=== PATIENT | male | born 1990 | race Caucasian/White ===

== ENCOUNTER 2016-05-28 15:40 | Emergency (ER) | payer MEDICAID, OTHER ==
[2016-05-28 16:01] VITALS: BP 125/66; PULSE 75; RESP 18; TEMP 98; O2SAT 97
--- NOTE | 2016-05-28 20:10 | UCPHY ---
H & P Time Seen by Provider: 05/28/16 17:28 Patient Type: New HPI/ROS: HPI Constipation. 25-year-old male by private vehicle. Reports that feels he has a stool impaction in his rectum. He has not been able to have a normal bowel movement in 3-4 days. He reports he has had some diarrheal stool which she feels has been passed around this impaction. He denies any significant abdominal pain. No fever. He has not vomited. No rectal bleeding. ROS: Constitutional: No fever, no chills. No weakness. Respiratory: No cough. No shortness of breath. Cardiac: No chest pain, no palpitations. Gastrointestinal: No abdominal pain, no vomiting, no diarrhea. As above. Genitourinary: No hematuria. No dysuria or increased frequency with urination. Musculoskeletal: No back pain. No neck pain. No myalgias or arthralgias. Skin: Chronic eczema. Neurological: No headache. No focal weakness or altered sensation. Past medical history: Eczema. Asthma. Social history: Nonsmoker. Here by himself. Physical Exam: General Appearance: Alert, no distress. This patient is responding to questions appropriately and in full sentences. This patient appears well- hydrated and well-nourished. Gastrointestinal: Abdomen is soft and nontender, no masses, bowel sounds normal. No focal tenderness at McBurney's point. No Cleary sign. Neurological: Motor sensory function is grossly intact. Cranial nerves are normal. Gait is normal. Skin: Warm and dry, no rashes. Extremities are symmetrical. All joints range without pain or impingement. Psychiatric: No agitation. No depression. Database: EKG: Imaging: Procedures: Emergency department course: Vital signs reviewed. He was given soapsuds enema with great success. He had a large and satisfying bowel movement. He feels much better and feels comfortable going home. I feel he is safe for discharge. Follow-up and return to emergency department precautions reviewed. Constipation management discussed. All of his questions were answered. He was discharged in good condition. Differential Diagnosis: The differential diagnosis on this patient includes but is not limited to constipation. Obstipation, bowel obstruction unlikely. This represents a partial list of diagnoses considered. These considerations are based on history , physical exam, past history, reassessment and diagnostic testing. Smoking Status: Current every day smoker Constitutional: Initial Vital Signs Temperature (C) 36.6 C 05/28/16 15:57 Heart Rate 75 05/28/16 15:57 Respiratory Rate 18 05/28/16 15:57 Blood Pressure 125/66 H 05/28/16 15:57 O2 Sat (%) 97 05/28/16 15:57 O2 Delivery Mode Room Air Allergies/Adverse Reactions: No Known Allergies Allergy (Unverified 05/09/14 14:29) Home Medications: Medication Instructions Recorded Albuterol [Proventil Inhaler (RX)] 1 - 2 puffs IH Q4 09/05/11 Dulera 100 Mcg/5 Mcg Inhaler 04/24/14 Topiramate 05/28/16 hydrALAZINE 05/28/16 Departure - Departure Disposition: Home, Routine, Self-Care Clinical Impression: Constipation Condition: Good Instructions: High Fiber Diet (ED), Constipation (ED) Additional Instructions: Read and follow provided instructions. Follow-up with your primary care physician in 1-2 days for re-evaluation. Return to the emergency department for worsening symptoms or other serious concerns. Referrals: NONE *PRIMARY CARE P,. [Primary Care Provider] - As per Instructions - PQRS PQRS Measurement: Not applicable.
== END 2016-05-28 20:15 | disposition home or self-care (01) ==
LOC: CED 15:40
DX: K59.00 Constipation, unspecified (principal)
CPT/HCPCS: G0463-PO

== ENCOUNTER 2016-06-06 13:15 | Emergency (ER) | payer MEDICAID ==
[2016-06-06 13:22] VITALS: RESP 16; TEMP 98.4
[2016-06-06] MEDS ORDERED: SULFAMETHOX/TMP 800/160 MG 1 TAB PO ONE (13:33)
[2016-06-06] MEDS ORDERED: HYDROmorphONE/DILAUDID 1 MG/ML SYR IVP ONE (13:33)
[2016-06-06] MEDS ORDERED: HYDROmorphONE/DILAUDID 1 MG/ML SYR ONE (13:34)
[2016-06-06] MEDS ORDERED: ONDANSETRON 4 MG/2 ML VIAL ONE (13:34)
--- NOTE | 2016-06-06 13:36 | EDPHY ---
H & P Stated Complaint: Enedelia-anal abcess. Time Seen by Provider: 06/06/16 13:27 HPI/ROS: CHIEF COMPLAINT: Perirectal abscess HISTORY OF PRESENT ILLNESS: Patient is a 25-year-old man who comes to the emergency department complaining of a recurrent perirectal abscess. He states that he had 1 about a year ago that was drained by Dr. Coles. He was placed on antibiotics and his symptoms resolved. He states that he has noticed again for the last 3 days. He has not had a fever. He does have some pain with defecation. No purulent drainage from his rectum. He also has a history of eczema. REVIEW OF SYSTEMS: Constitutional: denies: chills, fever, recent illness, recent injury EENTM: denies: blurred vision, double vision, nose congestion Respiratory: denies: cough, shortness of breath Cardiac: denies: chest pain, irregular heart rate, lightheadedness, palpitations Gastrointestinal/Abdominal: See HPI Genitourinary: denies: dysuria, frequency, hematuria, pain Musculoskeletal: denies: joint pain, muscle pain Skin: see HPI Neurological: denies: headache, numbness, paresthesia, tingling, dizziness, weakness Hematologic/Lymphatic: denies: blood clots, easy bleeding, easy bruising Immunologic/allergic: denies: HIV/AIDS, transplant EXAM: GENERAL: Well-appearing, well-nourished and in no acute distress. HEAD: Atraumatic, normocephalic. EYES: Pupils equal round and reactive to light, extraocular movements intact, sclera anicteric, conjunctiva are normal. ENT: TMs normal, nares patent, oropharynx clear without exudates. Moist mucous membranes. NECK: Normal range of motion, supple without lymphadenopathy or JVD. LUNGS: Breath sounds clear to auscultation bilaterally and equal. No wheezes rales or rhonchi. HEART: Regular rate and rhythm without murmurs, rubs or gallops. ABDOMEN: Soft, nontender, normoactive bowel sounds. No guarding, no rebound. No masses appreciated. : Patient has a fluctuant abscess at 7 o'clock perirectal. Rectal exam performed. No encroachment into the rectal vault. No drainage. BACK: No CVA tenderness, no spinal tenderness, step-offs or deformities EXTREMITIES: Normal range of motion, no pitting or edema. No clubbing or cyanosis. NEUROLOGICAL: Cranial nerves II through XII grossly intact. Normal speech, normal gait. 5/5 strength, normal movement in all extremities, normal sensation PSYCH: Normal mood, normal affect. SKIN: Warm, dry, normal turgor, no visible rashes or lesions. Source: Patient Exam Limitations: No limitations - Personal History Current Tetanus/Diphtheria Vaccine: Yes Current Tetanus Diphtheria and Acellular Pertussis (TDAP): Yes Tetanus Vaccine Date: 2015 - Medical/Surgical History Hx Asthma: Yes Hx Chronic Respiratory Disease: No Hx Diabetes: No Hx Cardiac Disease: No Hx Renal Disease: No Hx Cirrhosis: No Hx Alcoholism: No Hx HIV/AIDS: No Hx Splenectomy or Spleen Trauma: No Other PMH: asthma, previous perianal abscess, MRSA groin, eczema. - Family History Significant Family History: No pertinent family hx - Social History Smoking Status: Heavy smoker Alcohol Use: Sober Drug Use: None Constitutional: Initial Vital Signs Temperature (C) 36.9 C 06/06/16 13:18 Heart Rate 116 H 06/06/16 13:18 Respiratory Rate 16 06/06/16 13:18 Blood Pressure 116/97 H 06/06/16 13:18 O2 Sat (%) 97 06/06/16 13:18 O2 Delivery Mode Room Air Allergies/Adverse Reactions: No Known Allergies Allergy (Verified 06/06/16 13:22) Home Medications: Medication Instructions Recorded Albuterol [Proventil Inhaler (RX)] 1 - 2 puffs IH Q4 09/05/11 Dulera 100 Mcg/5 Mcg Inhaler 04/24/14 Topiramate 05/28/16 Hydrocodone/APAP 5/325 [Gonzales 1 - 2 tab PO Q4H PRN #20 tab 06/06/16 5/325 (RX)] Hydroxyzine HCl 06/06/16 Sulfamethox/Tmp 800/160 mg 1 tab PO BID #14 tab 06/06/16 [Bactrim Ds] Medical Decision Making Procedures: Procedure: Abscess drainage. The patient's abscess was located on the right perirectal. I obtained verbal consent from the patient to drain the abscess who was informed about the possibility of bleeding and pain. The abscess was incised with 11 blade scalpel and 10 cc of purulent drainage was expressed. I irrigated the wound and placed some packing. The patient tolerated the procedure well. The procedure was performed by myself. ED Course/Re-evaluation: Patient was procedure well. The he started himself on Bactrim earlier today. I will refill his prescription. He is happy with this and declines further workup or testing. I will also give him prescription for pain medication. Differential Diagnosis: Partial list of the Differential diagnosis considered include but were not limited to; abscess, fistula and although unlikely based on the history and physical exam, I also considered cyst, hemorrhoids. I discussed these differential diagnoses and the plan with the patient as well as the usual and expected course. The patient understands that the diagnosis is provisional and that in medicine we are not always correct and that further workup is often warranted. Usual and customary warnings were given. All of the patient's questions were answered. The patient was instructed to return to the emergency department should the symptoms at all worsen or return, otherwise to followup with the physician as we discussed. - Data Points Medications Given: Discontinued Medications Hydromorphone HCl (Dilaudid) 1 mg IVP EDNOW ONE Stop: 06/06/16 13:34 Last Admin: 06/06/16 13:53 Dose: 1 mg Ondansetron HCl (Zofran) 4 mg IVP EDNOW ONE Stop: 06/06/16 13:54 Last Admin: 06/06/16 13:53 Dose: 4 mg Trimethoprim/Sulfamethoxazole (Bactrim Ds) 1 ea PO EDNOW ONE PRN Reason: Protocol Stop: 06/06/16 13:34 Last Admin: 06/06/16 14:10 Dose: Not Given Departure - Departure Disposition: Home, Routine, Self-Care Clinical Impression: Perirectal abscess Condition: Fair Instructions: Anorectal Abscess and Anal Fistula (ED) Referrals: NONE *PRIMARY CARE P,. [Primary Care Provider] - As per Instructions Juan Carlos Holley MD [Medical Doctor] - As per Instructions Prescriptions: Hydrocodone/APAP 5/325 [Gonzales 5/325 (RX)] 1 - 2 tab PO Q4H PRN #20 tab PRN Reason: Pain, Moderate Sulfamethox/Tmp 800/160 mg [Bactrim Ds] 1 tab PO BID #14 tab
[2016-06-06] MEDS ORDERED: ONDANSETRON 4 MG/2 ML VIAL IVP ONE (13:53)
[2016-06-06 14:59] VITALS: BP 115/73; PULSE 75; O2SAT 98
== END 2016-06-06 14:57 | disposition home or self-care (01) ==
PROC: 0D9QXZZ Drainage of Anus, External Approach (ICD-10-PCS; principal; 2016-06-06)
DX: K61.1 Rectal abscess (principal); J45.909 Unspecified asthma, uncomplicated; F17.200 Nicotine dependence, unspecified, uncomplicated
CPT/HCPCS: 96374; J1170; J2405